=== PATIENT | male | born 1960 | race Caucasian/White ===

== ENCOUNTER 2017-04-21 11:14 | Day surgery (SDC) | payer SELFPAY ==
[~2017-04-21 11:14] MED LIST: LIDOCAINE HCL 1% MPF SOL ONE; PROPOFOL 500 MG/50 ML EMU IV ONE
[2017-04-21 11:58] VITALS: TEMP 97.8; O2SAT 98
[2017-04-21] MEDS ORDERED: PROPOFOL 10 MG/ML EMU IV ONE (14:26)
[2017-04-21 14:48] VITALS: BP 124/76; PULSE 60; RESP 14
== END 2017-04-21 15:19 | disposition home or self-care (01) | DRG 951 ==
LOC: SURG 11:14
PROVIDERS: ATTEND Surgery
DX: Z12.11 Encounter for screening for malignant neoplasm of colon (principal); D12.2 Benign neoplasm of ascending colon; D12.5 Benign neoplasm of sigmoid colon
CPT/HCPCS: 99001; J2001; J2704

== ENCOUNTER 2017-09-27 08:44 | Emergency (ER) | payer SELFPAY ==
[2017-09-27] MEDS ORDERED: BSS/BALANCED SALT SOL ONE (09:20)
[2017-09-27] MEDS ORDERED: PROPARACAINE HCL 0.5% OPHTHALMIC SOL ONE (09:21)
[2017-09-27] MEDS ORDERED: BSS/BALANCED SALT SOL OP ONE (09:29)
[2017-09-27] MEDS ORDERED: PROPARACAINE HCL 0.5% OPHTHALMIC SOL OP ONE (09:29)
[2017-09-27] MEDS ORDERED: KETOROLAC TROMETHAMINE 30 MG/ML SOL IM ONE (09:31)
[2017-09-27 09:35] VITALS: RESP 20; TEMP 98
[2017-09-27] MEDS ORDERED: KETOROLAC TROMETHAMINE 30 MG/ML SOL ONE (09:37)
[2017-09-27 10:21] VITALS: BP 152/92; PULSE 67; O2SAT 97
== END 2017-09-27 10:17 | disposition home or self-care (01) | DRG 125 ==
LOC: ED 08:44
DX: S05.92XA Unspecified injury of left eye and orbit, initial encounter (principal); H21.562 Pupillary abnormality, left eye; S05.02XA Injury of conjunctiva and corneal abrasion without foreign body, left eye, initial encounter
CPT/HCPCS: 99283; J1885

== ENCOUNTER 2018-02-24 02:58 | Emergency (ER) | payer MEDICAID, OTHER ==
[2018-02-24 03:07] VITALS: BP 173/103; PULSE 74; RESP 16; TEMP 96.3; O2SAT 98
[2018-02-24] MEDS ORDERED: KETOROLAC TROMETHAMINE 30 MG/ML SOL IM ONE (03:25)
[2018-02-24] MEDS ORDERED: AUGMENTIN(FRIDGE) 400 MG/5 ML PO ONE (03:25)
[2018-02-24] MEDS ORDERED: KETOROLAC TROMETHAMINE 30 MG/ML SOL ONE (03:29)
[2018-02-24] MEDS ORDERED: AUGMENTIN(FRIDGE) 400 MG/5 ML ONE (03:31)
== END 2018-02-24 03:42 | disposition home or self-care (01) ==
LOC: ED 02:58
DX: K08.89 Other specified disorders of teeth and supporting structures (principal)
CPT/HCPCS: 96372; 99282; J1885; A9270-GY